=== PATIENT | female | born 2000 | race Caucasian/White ===

== ENCOUNTER 2024-05-22 18:50 | Outpatient (CLI) | payer BC, SELFPAY | END 2024-05-22 18:51 | disposition home or self-care (01) | LOC: NFLDREF 05-30 23:53 | PROVIDERS: PCP Family Medicine; Referring Provider Family Medicine; Visit Provider Family Medicine | DX: Z11.1 Encounter for screening for respiratory tuberculosis (principal) | CPT/HCPCS: 86480 ==

== ENCOUNTER 2024-06-30 14:30 | Emergency (ER) | payer BC, SELFPAY ==
--- OUTSIDE RECORDS SUMMARY | 2024-06-30 14:33 | XMS_ITS | Encounter Summary ---
Author Organization [facility] Address [address] [place] [address] [address] [place] [address] Care Team Providers Care Gas Operations Analyst Name Role Phone Rhea Huffman MD Primary Care Provider [phone] Apolonia Guillory SPAR CAP BEVELER-REPRODUCTIVE HEALTHCARE ASSISTANT Unavailable [phone] Rhea Huffman MD Primary Care Provider [phone] Apolonia Guillory SPAR CAP BEVELER-REPRODUCTIVE HEALTHCARE ASSISTANT Unavailable [phone] Rhea Huffman MD Unavailable [phone] Apolonia Guillory SPAR CAP BEVELER-REPRODUCTIVE HEALTHCARE ASSISTANT Unavailable [phone] Apolonia Guillory SPAR CAP BEVELER-REPRODUCTIVE HEALTHCARE ASSISTANT Unavailable [phone] Provider, No Attributed RESOURCE Unavailable Unavailable Apolonia Guillory SPAR CAP BEVELER-REPRODUCTIVE HEALTHCARE ASSISTANT Unavailable [phone] Provider, No Attributed RESOURCE Unavailable Unavailable Encounter Details Date Type Department Care Team (Latest Contact Info) Description 09/23/2017 Lab Requisition [facility] [address] [place] [address] Lamin Lamb MD [address] [place] [address] Urinary tract infection Social History Tobacco Use Types Packs/Day Years Used Date Smoking Tobacco: Never Cigarettes - 08/04/2015 Smokeless Tobacco: Never Alcohol Use Standard Drinks/Week Comments No 0 (1 standard drink = 0.6 oz pur e alcohol) Sexually Active Control Partners Comments Yes Male Comments No Sex and Gender Information Value Date Recorded Sex Assigned at Not on file Legal Sex Female 7:41 AM CDT Gender Identity Not on file Sexual Orientation Not on file documented as of this encounter Functional Status * Do you have difficulty with walking, balance, climbing stairs, or had a fall in the last 3 months? Answer Date of Assessment Author Yes 08/31/2017 1:27 PM CDT Jovany Leone RN documented as of this encounter Plan of Treatment Not on file documented as of this encounter Goals Goal Patient Goal Type Associated Problems Recent Progress Patient-Stated? 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) No Verenice Colmenares RN documented as of this encounter Procedures Procedure Name Priority Date/Time Associated Diagnosis Comments CULTURE BACTERIAL, URINE Routine 09/23/2017 2:06 PM CDT Urinary tract infection URINALYSIS, REFLEX TO CULTURE Routine 09/23/2017 2:06 PM CDT Urinary tract infection documented in this encounter Results * (ABNORMAL) CULTURE BACTERIAL, URINE (09/23/2017 2:06 PM CDT) Culture Result >100,000 CFU/mL Escherichia coli(!) ANGELICA 09/25/2017 11:17 AM CDT [facility] Urine 09/23/2017 2:06 PM CDT 09/23/2017 2:07 PM CDT Narrative Organism Antibiotic Method Susceptibility Escherichia coli Ampicillin ANGELICA 4.0 ug/mL: Sensitive Escherichia coli Ampicillin/sulbactam ANGELICA <=2.0 ug/mL: Sensitive Escherichia coli Cefazolin ANGELICA <=4.0 ug/mL: Sensitive Escherichia coli Ceftriaxone ANGELICA <=1.0 ug/mL: Sensitive Escherichia coli Ciprofloxacin ANGELICA <=0.25 ug/mL: Sensitive Escherichia coli Gentamicin ANGELICA <=1.0 ug/mL: Sensitive Escherichia coli Nitrofurantoin ANGELICA <=16.0 ug/mL: Sensitive Comment:Nitrofuranto in should not be used for pyelonephritis due to low renal concentration. Escherichia coli Piperacillin/Tazobactam ANGELICA <=4.0 ug/mL: Sensitive Escherichia coli Tobramycin ANGELICA <=1.0 ug/mL: Sensitive Escherichia coli Trimethoprim/Sulfame thoxaz ole ANGELICA <=20.0 ug/mL: Sensitive Comment: Cefazolin predicts susceptibility to oral agents cephalexin, cefdinir, cefpodoxime and cefuroxime when used for therapy of uncomplicated UTIs. Ceftriaxone: 3rd generation cephalosporin (cefotaxime) may demonstrate a similar antimicrobial activity. us Lamin Lamb MD LAB MICROBIOLOGY Final Resul t [facility] [address] [place], [place] [id number] * (ABNORMAL) URINALYSIS, REFLEX TO CULTURE (09/23/2017 2:06 PM CDT) Color Urine Yellow 09/23/2017 2:33 PM CDT [facility] [employer] [facility] [place] Clarity Urine Cloudy 09/23/2017 2:33 PM CDT [facility] [employer] [facility] [place] Glucose Urine Negative Negative 09/23/2017 2:33 PM T [facility] [employer] [facility] [place] Bilirubin Urine Negative Negative 8 2:33 PM CDT [facility] [employer] [facility] [place] Ketones Urine Negative Negative 09/23/2017 2:33 PM T [facility] [employer] [facility] [place] Specific [place] 1.025 1.005 - 1.030 09/23/2017 2:33 PM T [facility] [employer] [facility] [place] Blood Urine Large(A) Negative 09/23/2017 2:33 PM T [facility] [employer] [facility] [place] pH Urine 6.0 5.0, 5.5, 6.0, 6.5, 7.0, 7.5, 8.0 09/23/2017 2:33 PM CDT [facility] [employer] [facility] [place] Protein Urine 100 mg/dL(A) Negative, Trace 09/23/2017 2:33 PM CDT [facility] [employer] [facility] [place] Urobilinogen 1.0 EU/dL 0.2 EU/dL, 1.0 EU/dL 09/23/2017 2:33 PM CDT [facility] [employer] [facility] [place] Nitrite Positive(A) Negative 09/23/2017 2:33 PM CDT [facility] [employer] [facility] Leukocyte Esterase Urine Large(A) Negative 09/23/2017 2:33 PM CDT [facility] [employer] [facility] WBC Urine >200 /hpf(A) Negative, 0-5 /hpf 09/23/2017 2:33 PM CDT [facility] [employer] [facility] RBC Urine >200 /hpf(A) Negative, 0-2 /hpf 09/23/2017 2:33 PM CDT [facility] [employer] [facility] Squamous Epithelial Moderate(A) Negative, Few 09/23/2017 2:33 PM CDT [facility] [employer] [facility] Bacteria Many(A) Negative 09/23/2017 2:33 PM CDT [facility] [employer] Urine 09/23/2017 2:06 PM CDT 09/23/2017 2:07 PM CDT Narrative [facility] [employer] [facility] AM[facility] - 09/23/2017 2:33 PM CDT A urine culture will be performed when one or more of the following criteria is met: Nitrite-Positive Leukocyte Esterase-Positive WBC-Greater than 5 Lamin Lamb MD LAB NON BLOOD Final Result [facility] [address] [place] [address] documented in this encounter Visit Diagnoses Diagnosis Urinary tract infection Urinary tract infection, site not specified documented in this encounter Care Teams Gas Operations Analyst Relationship Specialty Start Date End Date Rhea Huffman MD PCP - General Family Medicine 08/10/16 03/12/19 Apolonia Guillory, SPAR CAP BEVELER-REPRODUCTIVE HEALTHCARE ASSISTANT [address] [place] [address] PCP - Attributed Provider 11/15/16 Rhea Huffman MD [address] [place] [address] [place] [address] PCP - General 03/13/19 12/09/21 Apolonia Guillory, SPAR CAP BEVELER-REPRODUCTIVE HEALTHCARE ASSISTANT [address] [place] [address] PCP - Attributed Provider 04/12/19 Rhea Huffman MD [address] [facility] [place] [address] PCP - Attributed Provider 02/12/20 Apolonia Guillory, SPAR CAP BEVELER-REPRODUCTIVE HEALTHCARE ASSISTANT [address] [place] [address] PCP - Attributed Provider 03/13/2009/18 Apolonia Guillory SPAR CAP BEVELER-REPRODUCTIVE HEALTHCARE ASSISTANT [address] [facility] [place] [address] PCP - Attributed Provider 10/11/2011/18 Provider, No Attributed, RESOURCE [address] PCP - Attributed Provider 12/11/21 Apolonia Guillory, SPAR CAP BEVELER-REPRODUCTIVE HEALTHCARE ASSISTANT [address] [facility] [place] [address] PCP - Attributed Provider 04/15/2207/19 Provider, No Attributed, RESOURCE [address] PCP - Attributed Provider 08/11/22 documented as of this encounter
--- OUTSIDE RECORDS SUMMARY | 2024-06-30 14:33 | XMS_ITS | Clinical Summary ---
Author Organization [facility] Address [address] [place] [address] [address] [place] [address] Care Team Providers Care Plug Drill Operator Name Role Phone Provider, No Attributed RESOURCE Unavailable Unavailable Allergies Active Allergy Reactions Criticality Noted Date Comments Pet Dander Other (Specify in Comments) 07/30/19 16 Stuffy nose Medications etonogestrel (IMPLANON;NEXPLA NON) 68 MG subcutaneous implantIndicatio ns:Insertion of Nexplanon Inject 1 Device (68 mg) subcutaneously Every 3 (three) years 1 Device 07/16/19 18 Active saline nasal spray (AYR,OCEAN) 0.65 % nasal sprayIndications :Post-nasal drip Etlan 3 sprays into each nostril every 2 hours as needed for rhinitis 1 Bottle 02/01/20 20 Active cetirizine (ZYRTEC) 10 mg tabletIndication s:Fluid level behind tympanic membrane of left ear,Postnasal drip Take 1 tablet (10 mg) by mouth 1 time per day 30 tablet 11 02/15/20 20 Active fluticasone (FLONASE) 50 mcg/spray nasal sprayIndications :Fluid level behind tympanic membrane of left ear,Postnasal drip Etlan 1 spray into each nostril 2 times a day 1 Bottle 02/15/20 20 Active sertraline (ZOLOFT) 50 mg tabletIndication s:Anxiety with depression Take 1 tablet (50 mg) by mouth 1 time per day 30 tablet 1 03/12/20 20 Active hydrOXYzine (ATARAX) 25 mg tabletIndication s:Anxiety with depression Take 0.5-1 tablets (12.5-25 mg) by mouth at bedtime as needed (insomnia) 15 tablet 04/23/19 21 Active Active Problems Problem Noted Date Diagnosed Date Anxiety with depression 05/09/2020 Moderate episode of recurrent major depressive d isorder 01/17/2018 Overview (01/17/2018): Acute on chronic; Lumbar back pain 08/12/2017 Neck pain 08/10/2016 Adjustment disorder 02/18/2016 Overview (09/28/2016): [facility]n Deras L.I.C.S.W./pos Immunizations Immunization Administration Dates Next Due FLU VACCINE TRIVALENT SINGLE DOSE(Fluvirin,Afluria) 02/04/2008,02/21/2007 DTaP 11/03/2006, 3,2001,06/03,2001 FLU VACCINE MULTIDOSE 0.5mL(6MO+Fluzone/Flulaval,Afluria) 04/29/2017 HEP B VACCINE 04/17/2002,2001,2001 HIB,unspecified 04/17/2002, 2,2001,03/04 HPV,quadrivalent 01/19/2013,09/13/2012, 3 Hep A,peds/adol 09/10/2003,02/21/2003 IPV 11/03/2006, 2,2001,03/04 Influenza Intranasal 12/12/2009 Influenza Vaccine,unspecified 01/19/2013 MMR 01/09/2002 MMRV 11/03/2006 Meningococcal B,OMV (Bexsero) 04/29/2017, 017 Meningococcal MCV4P (Menactra) 01/13/2017,2013 Pneumococcal Conj PCV13 02/21/2003,08/09/2002 Pneumococcal Conj PCV7 04/17/2002,2001 TDAP 01/19/2013 Varicella 01/09/2002 Social History Tobacco Use Types Packs/Day Years Used Date Smoking Tobacco: Former Cigarettes 0 08/03/2014 - 08/04/2015 Smokeless Tobacco: Never Alcohol Use Standard Drinks/Week Comments Yes 1 (1 standard drink = 0.6 oz pure alcohol) On special occasions ie. new years, grandmothers birthday AUDIT-C Answer Date Recorded Q1: How often do you have a drink containing alc ohol? Monthly or less 05/09/2020 Q2: How many drinks containi ng alcohol do you have on a typical day when you are drinking? 1 or 2 05/09/2020 Q3: How often do you have si x or more drinks on one occasion? Never 05/09/2020 PHQ-2 Answer Date Recorded PHQ-9 Total (Adult) 9 05/09/2020 Sexually Active Control Partners Comments Yes Implant, Condom Male Comments No Sex and Gender Information Value Date Recorded Sex Assigned at Not on file Legal Sex Female 7:41 AM CDT Gender Identity Not on file Sexual Orientation Not on file Last Filed Vital Signs Vital Sign Reading Time Taken Comments Blood Pressure 120/77 05/09/2020 3:36 PM BRIDGE PAINTER HELPER Pulse 79 05/09/2020 3:36 PM BRIDGE PAINTER HELPER Temperature 36.6 C (97.9 F) 05/09/2020 3:36 PM BRIDGE PAINTER HELPER Respiratory Rate 18 05/09/2020 3:36 PM BRIDGE PAINTER HELPER Oxygen Saturation 99% 05/09/2020 3:36 PM BRIDGE PAINTER HELPER Inhaled Oxygen Concentration - - Weight 75.8 kg (167 lb) 05/09/2020 2:18 PM BRIDGE PAINTER HELPER Height 165.1 cm (5' 5) 05/09/2020 2:18 PM BRIDGE PAINTER HELPER Body Mass Index 27.79 05/09/2020 2:18 PM BRIDGE PAINTER HELPER Plan of Treatment Health Maintenance Due Date Last Done Comments Hepatitis C Screening 2001 HIV One Time Screening Ages 15-65 01/06/2016 Chlamydia Screening if Sexua lly Active 12/29/2018 12/29/2017, 10/07/2017, 04/29/2017, Additional history exists Implantable Contraceptive De vice: 3 Years 07/15/2020 07/15/2017 Lipid Screening 2022 Pap Smear 2022 TDAP/TD VACCINE (2 - Td or Tdap) 01/19/2023 01/20/20 13 Covid-19 Vaccine ( - 2023-2 5 season) 2023 Influenza Vaccine (#1) 2023 8, 01/19/2013, 12/12/2009, Additional history exists Hepatitis B Vaccine Completed 04/17/2002, 2001, 2001 Pneumococcal Vaccine (0-5yr; and At-risk 6-49yr) Completed 02/21/2003, 08/09/2002 HPV Vaccine Completed 01/19/2013, 08/18, 07/05/2012 Men B Vaccine Completed 04/29/2017, 01/13/2017 Goals Goal Patient Goal Type Associated Problems Recent Progress Patient-Stated? Author DIET - MAKE HEALTHIER SNACK CHOICES Diet No Verenice Colmenares RN LIFESTYLE - DO PT EXERCISES DAILY Exercise No Verenice Colmenares RN Lifestyle < 80.3 kg (177 lb) Weight 75.8 kg (167 lb)( 1 2:18 PM BRIDGE PAINTER HELPER) No Verenice Colmenares RN Medical Devices Implanted Type Area Sociology Teacher Device Identifier Shelf Expiration Date Model / Serial / Lot Nexplanon-07/15 Implanted:Qty: 1 on 07/15/2017 by Lainey Ojeda MD General Implant Left: ARM 08/18/2019 [facility] [id number] / / [id number] Procedures Procedure Name Priority Date/Time Associated Diagnosis Comments CHLAMYDIA AND NEISSERIA GONORRHEA NUCLEIC ACID DETECTION Routine 12/29/2017 1:31 PM CDT Vaginal discharge NEXPLANON INSERTION Routine 07/15/2017 1 0:29 AM CDT Insertion of Nexplanon from Last 3 Months or Most Recently Relevant to Health Maintenance Results * CHLAMYDIA / GC BY BD (12/29/2017 1:31 PM CDT) C. trachomatis Nuc. Acid Not Detected Not Detected 12/30/2017 12:35 PM CDT [facility] N. gonorrhea Nuc. Acid Not Detected Not Detected 12/30/2017 12:35 PM CDT [facility] Misc SPECIMEN FROM VAGINA / Unknown 12/29/2017 1:31 PM CDT 12/29/2017 1:31 PM CDT Narrative [facility] - 12/30/2017 12:35 PM CDT This test was performed by polymerase chain reaction (PCR) on the Luis [id number] instrument. Denae Wakefield PA-C LAB NON BLOOD Final Resul t [facility] [address] [facility] [address] [place] [address] from Last 3 Months or Most Recently Relevant to Health Maintenance Care Teams Plug Drill Operator Relationship Specialty Start Date End Date Provider, No Attributed, RESOURCE [address] PCP - Attributed Provider 08/11/22
[2024-06-30 14:39] VITALS: BP 118/83; PULSE 99; RESP 18; TEMP 36.9; O2SAT 98; BMI 35.8
--- NOTE | 2024-06-30 16:10 | ED.GENADULT ---
HPI - General Adult General Chief complaint: Ear/Nose/Throat Problem Stated complaint: Rt Ear & Throat Pain Time Seen by Provider: 06/30/24 14:41 History of Present Illness HPI narrative: Comes in reporting sore throat and right ear pain. She states that she has had these symptoms for about a week but the ear pain has become more prominent recently. She reports that she had RSV a few weeks ago but recovered from that. She was seen at a different clinic within the last week and had chest x-ray, strep swab, and labs which all returned negative. She did receive prescription for a steroid and meloxicam and states that this has helped somewhat. She does not report any fevers and arrives here with normal vital signs. She states that she recently has a new partner and wonders if she may have contracted an infection such as chlamydia. Related Data Home Medications ?Medication ?Instructions ?Recorded ?Confirmed meloxicam 7.5 mg tablet 7.5 mg PO BID 06/30/24 06/30/24 prednisone 20 mg tablet 40 mg PO DAILY 06/30/24 06/30/24 Previous Rx's ?Medication ?Instructions ?Recorded doxycycline hyclate 100 mg capsule 100 mg PO BID 7 days #14 caps 06/30/24 Allergies Allergy/AdvReac Type Severity Reaction Status Date / Time cat dander Allergy Mild Congested Verified 06/30/24 14:50 grass pollen Allergy Mild Congested Verified 06/30/24 14:50 Review of Systems Status of ROS: Reports: 10 or more systems reviewed and unremarkable except as noted in History and below Narrative: Constitutional: No fevers, no weight gain or loss. Eyes: No discharge. No vision changes. HENT: No congestion. Sore throat and right ear pain. Cardiovascular: No chest pain, no palpitations. Respiratory: No shortness of breath, no wheezes, no cough. Gastrointestinal: No abdominal pain, no vomiting, no diarrhea. Genitourinary: No dysuria, no hematuria. Musculoskeletal: Normal range of motion. Skin: No rashes, no pruritis. Neurological: No dizziness, weakness, sensory change, speech change. Endo/Heme/Allergies: No bruising or bleeding. No polydipsia. Pysch: no suicidality, no anxiety, no insomnia. All other systems reviewed and are negative. [facility] Medical History (Updated 06/30/24 @ 16:15 by Navneet Lizarraga MD) Nexplanon in place ?Z97.5 - Presence of (intrauterine) contraceptive device (ICD-10) Polysubstance abuse ?F19.10 - Other psychoactive substance abuse, uncomplicated (ICD-10) Generalized anxiety disorder ?F41.1 - Generalized anxiety disorder (ICD-10) Chronic major depressive disorder, recurrent episode ?F33.9 - Major depressive disorder, recurrent, unspecified (ICD-10) Family History (Updated 09/26/21 @ 10:50 by Jerrell Brody) Mother Depression Father Depression Family/Other Depression Social History (Updated 11/09/21 @ 20:57 by Lamin Sanchez MD) Narrative: single, no kids, works at a grocery store, nonsmoker, no EtOH, Hx THC & others Smoking Status: Never smoker Non-prescribed substance use: denies use Exam Narrative: Exam Narrative: Constitutional: Well-developed, well-nourished, no acute distress. HEENT: Normocephalic, atraumatic. Oropharynx shows erythema with exudate on the right oropharynx. Left tympanic membrane appears normal. Right tympanic membrane shows signs of infection with dullness and bulging of the tympanic membrane. Neck: Normal range of motion. Nontender. Supple. Heart: Regular. No murmurs. Normal rate. Intact distal pulses. Lungs: Clear to auscultation. No chest discomfort. No wheezes, rhonchi, or rales. Abdomen: Normal bowel sounds. Nontender. No rebound tenderness. Genitalia: Deferred. Back: No midline tenderness. Normal range of motion. Extremities: Normal range of motion. No injury. Skin: Intact. No rash. Warm. No erythema or pallor. Neurologic: No altered sensation. No weakness. Alert and oriented. Psychiatric: No suicidality. No anxiety or depression. No insomnia. Nursing notes and vitals signs are reviewed. Const: Vital Signs, click to edit/add: Vital Signs - 24 hr 06/30/24 14:39 Temperature 98.4 F Pulse Rate [Right Pulse Oximeter] 99 Respiratory Rate 18 Blood Pressure [Le ft Upper Arm] 118/83 Pulse Oximetry 98 Oxygen Delivery Me thod Room Air Course Vital Signs Vital signs: Initial Vital Signs Temperature 98.4 F 06/30/24 14:39 Temperature Source Temporal Artery Scan 06/30/24 14:39 Pulse Rate 99 06/30/24 14:39 Pulse Rhythm Regular 06/30/24 14:39 Pulse Strength 3+ Normal 06/30/24 14:39 Respiratory Rate 18 06/30/24 14:39 Blood Pressure 118/83 06/30/24 14:39 Blood Pressure Mean 94 06/30/24 14:39 Blood Pressure Position Sitting 06/30/24 14:39 Pulse Oximetry 98 06/30/24 14:39 Oxygen Delivery Method Room Air 06/30/24 14:39 Vital Signs Temperature 98.4 F 06/30/24 14:39 Pulse Rate 99 06/30/24 14:39 Respiratory Rate 18 06/30/24 14:39 Blood Pressure 118/83 06/30/24 14:39 Pulse Oximetry 98 06/30/24 14:39 Oxygen Delivery Method Room Air 06/30/24 14:39 Temperature 98.4 F 06/30/24 14:39 Pulse Rate 99 06/30/24 14:39 Respiratory Rate 18 06/30/24 14:39 Blood Pressure 118/83 06/30/24 14:39 Pulse Oximetry 98 06/30/24 14:39 Oxygen Delivery Method Room Air 06/30/24 14:39 Medical Decision Making MDM Narrative Medical decision making narrative: This patient comes in with sore throat and right ear pain. Her exam is suspicious for some type of bacterial infection when viewing her right tympanic membrane and her oropharynx. The patient received a prescription for doxycycline. She did have recent lab test done and I did not repeat any further testing here today. She can continue her other medications as prescribed. Discharge Plan Discharge Clinical Impression: Otitis media, Pharyngitis Patient Disposition: Home, Self-Care Condition: Unchanged Additional Instructions: Take medication as prescribed. Continue other medications also as prescribed. Follow up with MD return if worsening. Prescriptions: New doxycycline hyclate 100 mg capsule 100 mg PO BID 7 Days Qty: 14 0RF No Action prednisone 20 mg tablet 40 mg PO DAILY meloxicam 7.5 mg tablet 7.5 mg PO BID Follow Up/Referrals: Lamin Sanchez MD [Primary Care Provider] - Stand Alone Forms: [employer] Info Instructions
--- OUTSIDE RECORDS SUMMARY | 2024-06-30 16:30 | XMS_ITS | Encounter Summary ---
Author Organization [facility] [employer] [facility] Address [address] [place] [address] [address] [place] [address] Care Team Providers Care Bread Distributor Name Role Phone Rhea Huffman MD Primary Care Provider [phone] Apolonia Guillory CLERK ANALYST-BITUMINOUS PAVING MACHINE OPERATOR Unavailable [phone] Rhea Huffman MD Primary Care Provider [phone] Apolonia Guillory CLERK ANALYST-BITUMINOUS PAVING MACHINE OPERATOR Unavailable [phone] Rhea Huffman MD Unavailable [phone] Apolonia Guillory CLERK ANALYST-BITUMINOUS PAVING MACHINE OPERATOR Unavailable [phone] Apolonia Guillory CLERK ANALYST-BITUMINOUS PAVING MACHINE OPERATOR Unavailable [phone] Provider, No Attributed RESOURCE Unavailable Unavailable Apolonia Guillory CLERK ANALYST-BITUMINOUS PAVING MACHINE OPERATOR Unavailable [phone] Provider, No Attributed RESOURCE Unavailable Unavailable Encounter Details Date Type Department Care Team (Latest Contact Info) Description 09/23/2017 Lab Requisition [facility] [address] [place] [address] Lamin Lamb MD [address] [place] [address] Urinary tract infection Social History Tobacco Use [...] 75.8 kg (167 lb)( 1 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 [place], [place] [id number] * (ABNORMAL) URINALYSIS, REFLEX TO CULTURE (09/23/2017 2:06 PM CDT) Color Urine Yellow 09/23/2017 2:33 PM CDT [facility] Clarity Urine Cloudy 09/23/2017 2:33 PM CDT [facility] Glucose Urine Negative Negative 09/23/2017 2:33 PM T [facility] Bilirubin Urine Negative Negative 8 2:33 PM CDT [facility] Ketones Urine Negative Negative 09/23/2017 2:33 PM [facility] Specific [place] 1.025 1.005 - 1.030 09/23/2017 2:33 PM [facility] Blood Urine Large(A) Negative 09/23/2017 2:33 PM [facility] pH Urine 6.0 5.0, 5.5, 6.0, 6.5, 7.0, 7.5, 8.0 09/23/2017 2:33 PM CDT [facility] Protein Urine 100 mg/dL(A) Negative, Trace 09/23/2017 2:33 PM CDT [facility] Urobilinogen 1.0 EU/dL 0.2 EU/dL, 1.0 EU/dL 09/23/2017 2:33 PM CDT [facility] Nitrite Positive(A) Negative 09/23/2017 2:33 PM CDT [facility] Leukocyte Esterase Urine Large(A) Negative 09/23/2017 2:33 PM CDT [facility] WBC Urine >200 /hpf(A) Negative, 0-5 /hpf 09/23/2017 2:33 PM CDT [facility] RBC Urine >200 /hpf(A) Negative, 0-2 /hpf 09/23/2017 2:33 PM CDT [facility] Squamous Epithelial Moderate(A) Negative, Few 09/23/2017 2:33 PM CDT [facility] Bacteria Many(A) Negative 09/23/2017 2:33 PM CDT [facility] [employer] Urine 09/23/2017 2:06 PM CDT 09/23/2017 2:07 PM CDT Narrative [facility] - 09/23/2017 2:33 PM CDT A urine culture will be performed when one or more of the following criteria is met: Nitrite-Positive Leukocyte Esterase-Positive WBC-Greater than 5 Lamin Lamb MD LAB NON BLOOD Final Result [facility] [address] [place] [address] documented in this encounter Visit Diagnoses Diagnosis Urinary tract infection Urinary tract infection, site not specified documented in this encounter Care Teams Bread Distributor Relationship Specialty Start Date End Date Rhea Huffman MD PCP - General Family Medicine 08/10/16 03/12/19 Apolonia Guillory, CLERK ANALYST-BITUMINOUS PAVING MACHINE OPERATOR [address] [place] [address] PCP - Attributed Provider 11/15/16 Rhea Huffman MD [address] [place] [address] [place] [address] PCP - General 03/13/19 12/09/21 Apolonia Guillory, CLERK ANALYST-BITUMINOUS PAVING MACHINE OPERATOR [address] [place] [address] PCP - Attributed Provider 04/12/19 Rhea Huffman MD [address] [facility] [place] [address] PCP - Attributed Provider 02/12/20 Apolonia Guillory, CLERK ANALYST-BITUMINOUS PAVING MACHINE OPERATOR [address] [place] [address] PCP - Attributed Provider 03/13/2009/18 Apolonia Guillory CLERK ANALYST-BITUMINOUS PAVING MACHINE OPERATOR [address] [facility] [place] [address] PCP - Attributed Provider 10/11/2011/18 Provider, No Attributed, RESOURCE [address] PCP - Attributed Provider 12/11/21 Apolonia Guillory, CLERK ANALYST-BITUMINOUS PAVING MACHINE OPERATOR [address] [facility] [place] [address] PCP - Attributed Provider 04/15/2207/19 Provider, No Attributed, RESOURCE [address] PCP - Attributed Provider 08/11/22 documented as of this encounter
--- OUTSIDE RECORDS SUMMARY | 2024-06-30 16:30 | XMS_ITS | Clinical Summary ---
Author Organization [facility] Address [address] [place] [address] [address] [place] [address] Care Team Providers Care Striper Spray Gun Name Role Phone Provider, No Attributed RESOURCE Unavailable Unavailable Allergies Active Allergy Reactions Criticality Noted Date Comments Pet Dander Other (Specify in Comments) 07/30/19 16 Stuffy nose Medications etonogestrel (IMPLANON;NEXPLA NON) 68 MG subcutaneous implantIndicatio ns:Insertion of Nexplanon Inject 1 Device (68 mg) subcutaneously Every 3 (three) years 1 Device 07/16/19 18 Active saline nasal spray (AYR,OCEAN) 0.65 % nasal sprayIndications :Post-nasal drip [place] 3 sprays into each nostril every 2 hours as needed for rhinitis 1 Bottle 02/01/20 20 Active cetirizine (ZYRTEC) 10 mg tabletIndication s:Fluid level behind tympanic membrane of left ear,Postnasal drip Take 1 tablet (10 mg) by mouth 1 time per day 30 tablet 11 02/15/20 20 Active fluticasone (FLONASE) 50 mcg/spray nasal sprayIndications :Fluid level behind tympanic membrane of left ear,Postnasal drip [place] 1 spray into each nostril 2 times [...] pain 08/10/2016 Adjustment disorder 02/18/2016 Overview (09/28/2016): [facility] Mariann Deras L.I.C.S.W./pos Immunizations Immunization Administration Dates [...] Comments Blood Pressure 120/77 05/09/2020 3:36 PM HAT MODEL Pulse 79 05/09/2020 3:36 PM HAT MODEL Temperature 36.6 C (97.9 F) 05/09/2020 3:36 PM HAT MODEL Respiratory Rate 18 05/09/2020 3:36 PM HAT MODEL Oxygen Saturation 99% 05/09/2020 3:36 PM HAT MODEL Inhaled Oxygen Concentration - - Weight 75.8 kg (167 lb) 05/09/2020 2:18 PM HAT MODEL Height 165.1 cm (5' 5) 05/09/2020 2:18 PM HAT MODEL Body Mass Index 27.79 05/09/2020 2:18 PM HAT MODEL Plan of Treatment Health Maintenance Due Date [...] 75.8 kg (167 lb)( 1 2:18 PM HAT MODEL) No Verenice Colmenares RN Medical Devices Implanted Type Area Hearing Therapist Device Identifier Shelf Expiration Date Model / Serial / Lot Nexplanon-07/15 Implanted:Qty: 1 on 07/15/2017 by Lainey Ojeda MD General Implant Left: ARM 08/18/2019 [facility] [id number] / / [id number] Procedures Procedure Name Priority Date/Time Associated Diagnosis [...] Detected Not Detected 12/30/2017 12:35 PM CDT [facility] N. gonorrhea Nuc. Acid Not Detected Not Detected 12/30/2017 12:35 PM CDT [facility] Misc SPECIMEN FROM [place] / Unknown 12/29/2017 1:31 PM CDT 12/29/2017 1:31 PM CDT Narrative [facility] - 12/30/2017 12:35 PM CDT This test was performed by polymerase chain reaction (PCR) on the Luis [id number] instrument. Denae Wakefield PA-C LAB NON BLOOD Final Resul t [facility] [address] [place] [address] from Last 3 Months or Most Recently Relevant to Health Maintenance Care Teams Striper Spray Gun Relationship Specialty Start Date End Date Provider, No Attributed, RESOURCE [address] PCP - Attributed Provider 08/11/22
== END 2024-06-30 16:33 | disposition home or self-care (01) ==
LOC: ED 16:27
PROVIDERS: Emergency Provider Emergency Medicine Emergency Medical Services; PCP Family Medicine
DX: H66.91 Otitis media, unspecified, right ear (principal); J02.9 Acute pharyngitis, unspecified
CPT/HCPCS: 99283; 99284

== ENCOUNTER 2024-12-19 14:33 | Outpatient (CLI) | payer BC, SELFPAY | END 2024-12-19 14:34 | disposition home or self-care (01) | LOC: NFLDUCREF 14:34 | PROVIDERS: PCP Family Medicine | DX: H60.11 Cellulitis of right external ear (principal) | CPT/HCPCS: 87070 ==